=== PATIENT | female | born 1960 | race Hispanic/Latino ===

== ENCOUNTER 2019-11-11 08:07 | Emergency (ER) | payer OTHER ==
[2019-11-11 08:35] LABS: #Basophils 0.1 thou/uL (0.0-0.2); #Eosinphils 0.1 thou/uL (0.0-0.7); #Lymphocytes 2.3 thou/uL (1.20-3.40); #Monocytes 0.5 thou/uL (0.11-0.59); %Basophils 0.5 % (0.0-1.0); %Eosinophils 1.2 % (0.0-10.0); %Lymphocytes 23.3 % (21.0-51.0); %Monocytes 4.9 % (0.0-10.0); %Neutrophils 70.2 % (42.0-75.0); Hemoglobin 14.3 g/dL (12.0-16.0); Mean Corpuscular Hemoglobin 30.7 pg (27.0-31.0); Mean Corpuscular Volume 90.3 fL (78.0-98.0); Mean Platelet Volume 8.2 fL (7.4-10.4); Platelet Count 343 thou/uL (130-400); RBC Distribution Width 12.1 % (11.5-14.5); Red Blood Cell (RBC) Count 4.65 mill/uL (4.20-5.40); White Blood Cell (WBC) Count 9.9 thou/uL (4.8-10.8)
[2019-11-11] MEDS ORDERED: Sodium Chloride 0.9% 1,000 ML ONE (08:38)
[2019-11-11] MEDS ORDERED: Ondansetron PF 4 MG/2 ML Vial ONE ×2 (08:39→08:40)
--- NOTE | 2019-11-11 08:53 | RAD ---
EXAM: Single view of the chest HISTORY: Chest pain COMPARISON: 02/01/2018 FINDINGS: Single view of the chest shows a normal sized cardiomediastinal silhouette. There is no sofya dence of consolidation, mass, or pleural effusion. The bones are unremarkable. IMPRESSION: No evidence of acute cardiopulmonary disease
[2019-11-11 08:58] LABS: ALT (SGPT) 24 U/L (8-55); AST (SGOT) 18 U/L (5-34); Albumin 3.9 g/dL (3.5-5.0); Alkaline Phosphatase 132 U/L (40-110); Anion Gap 15 mmol/L (10-20); BUN (Urea Nitrogen) 14 mg/dL (9.8-20.1); Bilirubin, Total 0.6 mg/dL (0.2-1.2); Calc. Creatinine Clearance 0 mL/min (70-130); Calcium 9.5 mg/dL (7.8-10.44); Carbon Dioxide 23 mmol/L (22-29); Chloride 102 mmol/L (98-107); Estimated GFR-MDRD 79; Globulin 3.1 g/dL (2.4-3.5); Glucose 154 mg/dL (70-105); Lipase 15 U/L (8-78); Magnesium 1.8 mg/dL (1.6-2.6); Sodium 136 mmol/L (136-145)
[2019-11-11] MEDS ORDERED: Iopamidol 370 76% 100 ML VIAL ONE (09:00)
[2019-11-11 09:14] LABS: Bilirubin Negative (Negative); Blood, Urine Trace (Negative); Clarity Clear (Clear); Glucose, Urine (Dipstick) Negative (Negative); Leukocyte Large (Negative); Nitrite Negative (Negative); Protein, Urine (Dipstick) Negative (Neg-Trace); Urobilinogen 0.2 mg/dL (Less than 2)
[2019-11-11] MEDS ORDERED: Aspirin Chewable 81 MG TAB ONE (09:24)
[2019-11-11] MEDS ORDERED: Morphine 4 MG/ML VIAL ONE (09:36)
[2019-11-11 09:42] LABS: Bacteria/HPF 1+ HPF (None Seen); Squamous Epithelial 0-3 HPF (0-3)
--- NOTE | 2019-11-11 09:53 | CT ---
CT ABDOMEN AND PELVIS WITH IV CONTRAST 11/11/2019 CLINICAL INFORMATION: Right-sided abdominal pain and vomiting. COMPARISON: CTA abdomen and pelvis on 01/17/2012 Technique: Multiple contiguous axial CT images are obtained through the abdomen and pelvis with IV contrast. Cor onal reformatted images are provided. FINDINGS: Lower Chest: There is a stable 5 mm pulmonary nodule lateral aspect right lower lobe. Lung bases are otherwise clear. Vessels: Atherosclerotic plaque and vascular calcifications are seen in the abdominal aorta and invol ving the iliac arteries. There is focal ectasia of the infrarenal abdominal aorta with eccentric atherosclerotic plaque. A vascular stent is seen in the left common iliac artery. Abdomen: Portal vein:Patent Gallbladder: Within normal limits for CT imaging. Liver: within normal limits. Spleen: within normal limits. Pancreas: within normal limits. Adrenals: within normal limits. Kidneys: A 4.1 cm fluid attenuation lesion is seen superior pole left kidney compatible with a cyst w hich is larger in size compared to study in 2012 previously measuring 2.7 cm. Subcentimeter too small to characterize hypodense lesion is seen at the junction of the midportion and inferior pole ri ght kidney. No enhancing renal mass is seen. Bowel: There is colonic diverticulosis. Loops of small bowel are normal in caliber. Appendix: The appendix is visualized and normal in caliber. Peritoneum: Small amount of free fluid is seen in the pelvis which is more than expected for normal p hysiologic fluid. Mesentery and Retroperitoneum: No enlarged mesenteric or retroperitoneal lymph nodes. Abdominal Wall: Small fat-containing ventral abdominal hernia is seen in a supraumbilical location. Pelvis: Reproductive Organs: Uterus is surgically absent. Pelvis within normal limits. Bladder: within normal limits. Bones: No suspicious lytic or sclerotic osseous lesions are identified. IMPRESSION: 1. Small amount of free fluid in the pelvis of uncertain etiology. 2. Left renal cyst with too small to characterize hypodense lesion right kidney. 3. Subcentimeter right lower lobe pulmonary nodule unchanged since study in 2011. 4. Colonic diverticulosis. 5. Atherosclerotic vascular calcifications and plaque in the abdominal aorta and involving the iliac arteries. 6. Hysterectomy. 7. No CT evidence of appendicitis.
[2019-11-11] MEDS ORDERED: cefTRIAXone\\ROCEPHIN 1 GM VIAL ONE (10:04)
[2019-11-11] MEDS ORDERED: Sodium Chloride 0.9% 100 ML ONE (10:05)
== END 2019-11-11 12:35 | disposition short-term general hospital (02) ==
LOC: NAV ERS 08:07
DX: R07.9 Chest pain, unspecified (principal); R10.817 Generalized abdominal tenderness; N39.0 Urinary tract infection, site not specified; R11.2 Nausea with vomiting, unspecified; F17.210 Nicotine dependence, cigarettes, uncomplicated; I10 Essential (primary) hypertension; E78.5 Hyperlipidemia, unspecified; E78.00 Pure hypercholesterolemia, unspecified; E11.9 Type 2 diabetes mellitus without complications; Z79.82 Long term (current) use of aspirin; Z79.899 Other long term (current) drug therapy; Z86.73 Personal history of transient ischemic attack (TIA), and cerebral infarction without residual deficits; Z79.84 Long term (current) use of oral hypoglycemic drugs; Z79.51 Long term (current) use of inhaled steroids
CPT/HCPCS: 71045; 74177; 80053; 81003; 81015; 83605; 83690; 83735; 83880; 84484; 85025; 87086; 93005; 94760; 96361; 96365; 96375; J0696; J2270; J2405; J3490; J7050; Q9967